=== PATIENT | male | born 1965 | race Caucasian/White ===

== ENCOUNTER → 2016-04-21 | Outpatient (CLI) | payer MEDICARE, MEDICAID ==
[~2016-04-21] MED LIST: AZIT250T81 PO; DIVA125T2; DVL500TSR PO; LOVA10TA PO; MPR22TI TOP; NAPR550T PO; OMEP10CA2; OMEP20CA6 PO; PARO10TA24; PARO20TA57 PO; SULF-221 PO
[2016-04-21 17:47] VITALS: BP 118/74
--- NOTE | 2016-04-21 17:47 | Urgent Care T Sheet Gen (E) ---
Intake General Temperature (Fahrenheit): 98.3 Pulse: 71 Blood Pressure Systolic: 118 Blood Pressure Diastolic: 74 Respirations: 20 SPO2: 98 Description of Symptoms Patient presents with an infection to the L lower lip x 1 week. States it has been oozing and is itchy. Caregiver states the patient picks at it. Hasn't spread over the past week. Been applying Neosporin without improvement. History of Present Illness Allergies: Coded Allergies: Penicillins (Unverified Allergy, 08/18/12) Home Meds Active Scripts Naproxen Sodium (Anaprox DS)550 Mg [id number] Mg PO Q8H PRN #12 Prov:MICAH FRASER MD 06/05/13 Azithromycin (Zithromax Z-Saravanan)6 Tab/Pkt Pfioxz261 Mg PO SEE INSTRUCTIONS #6 TAB Day One: Take 2 tablets by mouth Days Two-Five: Take 1 tablet by mouth Prov:MICAH FRASER MD 06/05/13 Reported Medications Paroxetine HCl (Paxil)20 Mg Vsilal43 Mg PO DAILY 08/18/12 Omeprazole (Prilosec)20 Mg Capsule.dr20 Mg PO BID 08/18/12 Divalproex Sodium (Depakote ER)500 Mg Mnb282 Mg PO HS #2 08/18/12 Lovastatin 10 Mg [id number] Po Daily #1 10/05/11 Respiratory Constitutional Symptoms: No syptoms reported EENTM: No symptoms reported Respiratory: No symptoms reported Cardiovascular: No symptoms reported Gastrointestinal/Abdominal: No symptoms reported Skin: Lesions All Other Systems Reviewed Remaining Systems: All other systems reviewed with negative findings Past Kufdybc-Nvrldi-Bbwitn Hx Surgeries/Hospitalizations Hospitalization/Surgery Hx: NUMEROUS CLEFT PALATE REPAIRS, ONE TESTICAL REMOVED, EAR SURGERY Respiratory Respiratory History: None Comment: Has nonproductive cough. LSCTA. Cardiovascular Cardiovascular History: Hypercholesterolemia Neuro/Muscular Neuro/Muscular History: Visual impairment Comment: MILD MR Reproductive System Sexually Transmitted Diseases: No Genitouinary Genitourinary History: None Gastrointestinal GI/Endocrine History: GERD Diabetes Diabetes: No HEENT Impaired Vision: Glasses Hearing Impaired: None Integumentary Integumentary History: Psoriasis Comment: Skin pale. Reddened Cheeks. Cancer History of Cancer?: No Psychosocial Behavior Disorders: Other, See Comment Physical Exam Physical Exam General Appearance: WD/WN No apparent distress Respiratory Exam: No respiratory distress Skin Exam: Other (lesion approx the size of a nickel located along the L lower lip. honey crusted. consistent with impetigo.) Departure Urgent Care Impression Impression: Primary Impression: Impetigo Departure Disposition: 01 HOME OR SELF-CARE Condition: Stable Referrals: PEACE NIÑO MD (PCP) Additional Instructions: With the patient's PCN and Clindamycin allergy, I have started him on Bactrim DS BID x 7 days. I have also prescribed Mupirocin ointment which he is to apply TID x 7 days. Good hand washing. Avoid touching the area to prevent spreading. If lesions develop elsewhere, he may use the ointment. Return as needed Patient and caregiver understand DC instructions. All questions were answered. Scripts Sulfamethoxazole/Trimethoprim (Sulfamethoxazole/Trimethoprim DS 800mg/160mg)1 Each Tablet1 Each PO BID #14 TAB Prov:GLENN MILLS 04/21/16 Mupirocin (Mupirocin Ointment)22 Gm Oint...g.1 Gm TOP TID #1 TUBE Apply topically to affected area TID x 7 days Prov:GLENN MILLS 04/21/16 End of report . GLENN MILLS Apr 21, 2016 17:47
== END ==
LOC: MHUC 17:22
PROVIDERS: ATTEND Physician Assistant
DX: L01.09 Other impetigo (principal)
CPT/HCPCS: 99213